=== PATIENT | female | born 1990 | race Caucasian/White ===

== ENCOUNTER 2023-05-16 09:08 | Outpatient (CLI) | payer OTHER, SELFPAY ==
[2023-05-16 10:02] VITALS: BP 109/73; PULSE 86; RESP 18; TEMP 36.8
[2023-05-16] MEDS: TERBUTALINE 1 MG/ML INJ 0.25 MG SUBCUT (10:28)
--- NOTE | 2023-05-16 12:28 | PM.PROC ---
Procedure Note Time Seen by Provider: : Date Seen: 05/16/23 Date of procedure: 05/16/23 Will [facility] bill your pro fee for this procedure?: Yes Pre-op diagnosis: Breech presentation at 37 3/7 weeks Post-op diagnosis: other (Vertex presentation, 37 3/7 weeks) Procedure: External cephalic version Procedure Description: A nonstress test was performed, which was reactive and reassuring. A limited OB ultrasound was performed at the bedside to determine position. Findings: Fetus in a breech presentation with head in the maternal right upper quadrant, and back along the maternal left. Informed consent was obtained for external cephalic version. Terbutaline 0.25 mg was administered to the patient subcutaneously. External cephalic version was attempted. I applied upward pressure to the breech, Elaina applied pressure to the vertex, and we attempted to gently coax the fetus in a forward roll in a clockwise direction. This attempt was successful. heart tones were noted to be normal following the external cephalic version. The patient tolerated the procedure well. monitoring for 1 hour after the procedure was continued to be reassuring. Anesthesia: none Surgeon: Irasema Hicks MD Water Service Dispatcher: Elaina Yo Condition: stable Disposition: observation
--- NOTE | 2023-05-16 12:44 | PC.OBNST ---
NST Note NST Note Start: 05/16/23 12:39 Freq: Status: Active Protocol: Document 05/16/23 11:45 ABP (Rec: 05/16/23 12:42 ABP [id number]) NST Note 2 Para (# of births) 1 EDC 06/05/23 Gestational Age In Weeks & Days 37 Weeks & 1 Days Patient Presented with Complaint(s) of Other Other Complaints ECV Reactive Yes CHICHI Bradley RN Date 05/16/23 Reactive Yes CHICHI Tatum RN OB NST charge Yes Complete NST Note via Write Note Yes The provider's electronic signature indicates the NST is reactive/appropriate for gestational age. *Note to provider: If an addendum is required, open the patient's chart and click on the note under the Nurse/Allied Health tab.
== END 2023-05-16 11:45 | disposition home or self-care (01) ==
LOC: OB CLI 09:09 → OB 09:15
PROVIDERS: PCP Family Medicine; Visit Provider Obstetrics & Gynecology
DX: O47.1 False labor at or after 37 completed weeks of gestation (principal); Z3A.37 37 weeks gestation of pregnancy
CPT/HCPCS: 36415; 59025; 59412; 85461; 99211; J2791; J3105

== ENCOUNTER 2023-06-08 18:06 | Inpatient (IN) | payer OTHER, SELFPAY ==
[2023-06-08 18:10] VITALS: BP 122/79; PULSE 93; PULSE 97; PULSE 99; TEMP 37.2; O2SAT 81; O2SAT 98
[2023-06-08 18:24] VITALS: BMI 28.0
--- NOTE | 2023-06-08 19:41 | PM.OBHPLI ---
OB - H&P: HPI Labor/Induction History of Present Illness Time Seen by Provider: 19:42 Date Seen: 06/08/23 Chief Complaint: The patient is a 32 year old 2 para 1 at 40+3 weeks gestation by 8 wk US, who presents for elective IOL. Chief complaint: Maternity : 2 Para: 1 Narrative: Natalee Lowe is a 32 year old female 2 para 1 at 40+3 weeks gestation by 8 wk US, who presents for elective IOL. Overall feeling well. Some contractions over the past few days, at times painful, but always resolved with rest and fluids. Wet discharge, but no LOF. Normal movement. History of Present Dating criteria: based on 1st trimester US only care: good care Ultrasounds: normal 1st trimester US and normal mid trimester US Narrative: - Blood type O neg, antibody screen negative. Received rhogam at 28 weeks. - Successful ECV at 37 weeks for breech presentation. Labs Blood type: 0 (-) negative Rubella: immune RPR/VDLR: nonreactive GBS status: negative HBsAG: negative Review of Systems Status of ROS: Reports: 10 or more systems reviewed and unremarkable except as noted in History and below Meds Home Medications and Allergies Home Medications Medication Instructions Recorded Confirmed Type vitamin with calcium 1 tab PO DAILY 03/20/23 06/08/23 History no.72-iron 27 mg-folic acid 1 mg tablet (M- Plus) famotidine 20 mg tablet (Pepcid) 20 mg PO QDAY 05/11/23 06/08/23 History Allergies Allergy/AdvReac Type Severity Reaction Status Date / Time penicillin G AdvReac Mild Verified 05/16/23 09:25 OB - H&P: Exam Physical Exam: Vital signs: Temp Pulse BP Pulse Ox 98.9 F 97 122/79 98 06/08/23 18:10 06/08/23 18:10 06/08/23 18:10 06/08/23 18:10 Narrative: General appearance: Well-appearing adult female. Alert, oriented and appropriate. Sitting up in hospital bed. HEENT: EOMI, no conjunctival injection or discharge. MMM. Neck: Supple. CV: RRR, no rubs, murmurs or extra heart sounds. Pulm: CTAB, no wheezes, rales or rhonchi. Abdomen: Soft, non-tender. Gravid. MSK: Moving all extremities. Ext: Warm and well-perfused. No LE edema. Skin: No rashes appreciated over exposed skin. Neuro: Grossly normal strength and sensation. No focal deficits. Psych: Normal affect. Detailed Labor and Delivery Exam: Patient Gravid: Yes Dilation (cm): 3 Effacement (%): 50 Cervix position: mid Consistency: medium Cervical ripeness score: 6 Fetus (Single): Station: -2 Amniotic Membrane Status: intact Heart Rate Baseline: 125 Monitor Accelerations: Present Monitor Decelerations: None Shell Assembler Variability: Moderate (6-25) OB - Problem Based A/P Additional Plan (1) Term : Status: Acute (2) Rh negative status during : Status: Acute Plan - Oral cytotec per protocol for cervical ripening - Epidural upon request - GBS negative - Reactive NST upon admission - Anticipate vaginal delivery
[2023-06-08 19:54] VITALS: BP 132/87; PULSE 105; RESP 14; TEMP 37.1
[2023-06-08] MEDS: miSOPROStoL 25 MCG/0.25 TABLET PO (20:03)
[2023-06-08 22:58] VITALS: BP 123/84; PULSE 80; RESP 16; TEMP 36.7
[2023-06-09] VITALS (104 sets, daily range): BP systolic 80–182; BP diastolic 40–131; PULSE 59–155; RESP 14–18; TEMP 36.5–37.3; O2SAT 98–100
[2023-06-09] MEDS: LACTATED RINGERS 1000 ML 1,000 ML 124 ML IV ×3 (03:29→07:45)
[2023-06-09] MEDS: OXYTOCIN 30 unit/500 ML in NS 30 UNIT/500 ML BAG IVPB (03:32)
[2023-06-09] MEDS: ROPIVACAINE 0.2% 100 ml 100 ML 12 MG EPIDURAL (04:27)
[2023-06-09] MEDS: PHENYLEPHRINE 100 MCG/ML SYRINGE IVP ×5 (04:30→05:09)
--- NOTE | 2023-06-09 04:37 | P.ANBPRC_ITS ---
[facility] Medical History Acne ?L70.9 - Acne, unspecified (ICD-10) Social History What is your current living situation?: I presently have a place to live Problems where you live: no known problems In the past 12 months, utilities in danger of being shut off: no In the past 12 mos, have been you worried that your food would run out before you had money to buy more?: never true In the past 12 mos, the food you bought just didn't last and you didn't have money to buy more?: never true Smoking Status: Never smoker How often does anyone, including family, friends and others, physically hurt you : never How often does anyone, including family, friends and others, insult or talk down to you: never How often does anyone, including family, friends and others, threaten you with harm: never How often does anyone, including family, friends and others, scream or curse at you: never Meds Home Medications and Allergies Home Medications Medication Instructions Recorded Confirmed Type vitamin with calcium 1 tab PO DAILY 03/20/23 06/08/23 History no.72-iron 27 mg-folic acid 1 mg tablet (M- Plus) famotidine 20 mg tablet (Pepcid) 20 mg PO QDAY 05/11/23 06/08/23 History Allergies Allergy/AdvReac Type Severity Reaction Status Date / Time penicillin G AdvReac Mild Verified 05/16/23 09:25 Results Vital Signs Vital Signs: Last Vital Signs Temp 98.1 F 06/09/23 02:15 Pulse 105 H 06/09/23 04:36 Resp 16 06/09/23 02:15 BP 124/72 06/09/23 04:36 Pulse Ox 100 06/09/23 04:34 Weight: 69.4 kg Height: 157.48 cm Anesthesia Procedures Epidural Insertion Patient Location: OB Start Time: :30 Stop Time: 04:30 Start Date: 06/09/23 Stop Date: 06/09/23 Reason for Block: procedure for pain Patient Position: sitting Performed By: Iris Busch Preanesthetic Checklist: IV checked, risks and benefits discussed, monitors and equipment checked, timeout performed and anesthesia consent Prep: chlorhexidine gluconate Monitoring: blood pressure monitoring, continuous pulse oximetry and heart rate Approach: midline Vertebral Space: lumbar (1-5) Epidural Technique: BREANNA saline Needle Type: Tuohy needle Injection Technique: continuous catheter Needle gauge: 17 Needle Length (cm): 10 cm Needle Insertion Depth (cm): 6 Catheter Gauge: 19 Catheter Type: multi-orifice Catheter at skin depth (cm): 12 Test Dose Result: negative and lidocaine 1.5% with epinephrine 1 to 200,000
--- NOTE | 2023-06-09 05:00 | P.OBPN_ITS ---
Subjective Time Seen by Provider: 05:00 Date Seen: 06/09/23 Narrative: I was called in to evaluate the patient d/t concern that delivery was imminent. Began to feel intense pressure and pain with contractions, requested epidural. No cervical check since ~0000. Upon my arrival, patient was more comfortable with epidural. Feeling nauseous, hypotension treated with phenylephrine x 2. Cervix found to be 5/90/-2 with bulging bag. AROM for clear fluid. Objective Vital Signs: Last Vital Signs Temp 97.7 F 06/09/23 04:50 Pulse 130 H 06/09/23 04:55 Resp 18 06/09/23 04:50 BP 97/62 06/09/23 04:55 Pulse Ox 100 06/09/23 04:59 Pelvic Exam Dilation (cm): 5 Effacement (%): 90 Station: -2 Contractions Monitor mode: External Contraction Frequency: Q2-4 Contraction pattern: Regular Pitocin Rate (mU/min): 1 Assessment Station: -2 Amniotic Membrane Status: AROM Status: Category ll Heart Rate Baseline: 140 Soil Biology Teacher Variability: Moderate (6-25) Monitor Accelerations: Absent Monitor Decelerations: Periodic Tracing Comments: Decreased variability and several decelerations with good recovery following epidural in context of maternal hypotension. Plan Plan: - Active labor, s/p AROM for clear fluid - Comfortable with epidural. Continue to monitor BP and treat PRN - tracing category II after epidural, continue to monitor - Anticipate vaginal delivery
[2023-06-09] MEDS: ePHEDrine sulfate 5 MG/ML inj 10 MG IVP (05:17)
[2023-06-09 08:42] LABS: Basophils Percent Auto 0.1 % (0.0-3.0); Hematocrit 38.3 % (33.0-51.0); Immature Granulocytes Pct Auto 0.3 %; Lymphocytes Percent Auto 5.9 % (20-44); Mean Corpuscular HGB Conc 34 gm/dL (32-36); Mean Corpuscular Hemoglobin 31 pg (26-34); Mean Corpuscular Volume 90 fL (80-100); Monocytes Percent Auto 3.4 % (0.0-11.0); Neutrophils Percent Auto 90.3 % (42.0-72.0); Platelet Count* 230 K/uL (140-440); Red Blood Count 4.24 m/uL (4.00-5.20); White Blood Count* 15.33 K/uL (4.50-11.00)
[2023-06-09 08:47] LABS: Slide Review Reflex No
[2023-06-09] MEDS: lidocaine HCL 2 % JELLY (TOP) STERILE 6 ML TOPICAL (11:30)
--- NOTE | 2023-06-09 12:13 | W.PM.OBVAGDE ---
OB Procedure Vag Delivery Mother Details Mother Details: The patient is a 32 year-old, 2, Para 1, admitted on 06/08/23 at Days gestation. : 22 Para: 1 Weeks Gestation: 40.4 Admission Date: 06/08/23 Additional Details Amniotic Membrane Status: AROM Amniotic Membrane Rupture Date: 06/09/23 Amniotic Membrane Rupture Time: 04:42 Amniotic Membrane Fluid Description: Clear Analgesia/Anesthesia Type: Epidural Waterbirth: No Pitcoin: Yes Intrapartal Events: Labor Augmentation Induction Method: per misoprostol protocol Delivery augmentation: rupture of membranes and pitocin Labor Onset: 00:30 Complete: 09:53 Pushin:30 Heart: heart tones during second stage were category 2. Decelerations with pushing, recovered with positional changes. Delivery Details Delivery Date: 06/09/23 Delivery Time: 11:26 Route of delivery: Infant Gender: Male Viability: Alive; Heart Rate Present Position at Delivery: OA Delivery Details: Delivered over intact perineum via spontaneous vaginal delivery. was placed on maternal abdomen.? Cord was clamped and cut and was transitioned to warmer for resuscitation. Required about 15 minutes of CPAP and delee suctioning with return of thick, mucousy fluid. APGARS 6 and 8. Support was weaned, infant oxygenating well on room air. Now resting comfortably with mom. 1 Minute Interval Total Score: 6 5 Minute Interval Total Score: 8 Additional Details Shoulder Dystocia: No Placenta Delivery Time: 11:29 Placental Delivery Description: Spontaneous Procedure Done: Global Blood Loss: 10 Laceration: Periurethral - 1st Degree (left, hemostatic) Episiotomy Description: None Blood Loss Measurement Type: QBL Bakri Used: No Sponge/Need Count Correct: Yes Cord Vessel Description: 3 Vessels Event Summary Status: Mother and infant were stable after delivery.
[2023-06-10 04:00] VITALS: BP 99/64; PULSE 81; RESP 16; TEMP 36.6; O2SAT 97
[2023-06-10 06:49] LABS: Hemoglobin* 12.4 gm/dL (12.0-16.0)
[2023-06-10] MEDS: DOCUSATE SODIUM 100 MG CAPSULE PO (08:52)
[2023-06-10 08:54] VITALS: BP 105/69; PULSE 83; RESP 16; TEMP 36.5; O2SAT 96
--- NOTE | 2023-06-10 11:33 | P.DS_ITS ---
DS: Providers Provider Time Seen by Provider: 11:00 Date Seen: 06/10/23 Date of admission: 06/08/23 18:06 Primary care physician: Lea Coon DO Admitting Clinician: Griselda Sykes MD Attending Physician on discharge: Griselda Sykes MD Date of Discharge: 06/10/23 DS: Diagnosis Discharge Diagnosis (1) Term : Status: Acute Problem details: Doing well (2) Rh negative status during : Status: Acute Problem details: received rhogam prior discharge Exam Const: Vital Signs, click to edit/add: Vital Signs - 24 hr 06/09/23 11:43 06/09/23 12:07 06/09/23 12:13 Temperature Pulse Rate 88 82 Pulse Rate [Pulse Oximeter] Respiratory Rate Blood Pressure 119/62 122/73 118/65 Blood Pressure [Le ft Arm] Pulse Oximetry Oxygen Delivery Me thod 06/09/23 12:27 06/09/23 12:42 06/09/23 12:58 Temperature Pulse Rate 88 89 81 Pulse Rate [Pulse Oximeter] Respiratory Rate Blood Pressure 122/69 119/70 111/66 Blood Pressure [Le ft Arm] Pulse Oximetry Oxygen Delivery Me thod 06/09/23 13:12 06/09/23 13:27 06/09/23 13:42 Temperature Pulse Rate 83 80 85 Pulse Rate [Pulse Oximeter] Respiratory Rate Blood Pressure 118/63 115/64 119/66 Blood Pressure [Le ft Arm] Pulse Oximetry Oxygen Delivery Me thod 06/09/23 15:24 06/09/23 20:00 06/09/23 23:31 Temperature 98 F 97.7 F Pulse Rate Pulse Rate [Pulse Oximeter] 81 67 60 Respiratory Rate 16 14 14 Blood Pressure Blood Pressure [Le ft Arm] 106/68 107/72 103/73 Pulse Oximetry 98 98 98 Oxygen Delivery Me thod Room Air Room Air Room Air 06/10/23 04:00 06/10/23 08:54 Temperature 97.9 F 97.7 F Pulse Rate Pulse Rate [Pulse Oximeter] 81 83 Respiratory Rate 16 16 Blood Pressure Blood Pressure [Le ft Arm] 99/64 105/69 Pulse Oximetry 97 96 Oxygen Delivery Me thod Room Air Room Air Documenting provider has reviewed patient's vital signs: yes Common normals: no apparent distress, oriented x3, healthy appearing, alert and well nourished General appearance: cooperative and comfortable : Uterus: U/1 and firm Neuro: Common normals: oriented x3 Sensorium/orientation: alert OB - DS: Summary Hospital Course Hospital Course: The patient is a 32 year old G 2 P 1 at 40 4/7 weeks gestation that was admitted to the Center on 06/08/23 for induction. She had an uncomplicated vaginal delivery. She delivered a viable male . She is breast feeding. the patient has done well. Lochia mild. Voiding, ambulating, tolerating orals. Patient would like to go home today if possible. Has 8year old at home. Peripartum Data Infant delivery method: Vaginal complications: none [place] Infant Gender: Male Discharge Plan: Home Status at Discharge Functional status at discharge: independent ambulation Time Spent with Patient Time attestation: Total time spent providing and/or coordinating discharge services: Time spent: Less than 30 minutes Discharge Plan Discharge Disposition: Home, Self-Care Date of Admission: 06/08/23 18:06 Primary Care Provider: Lea Coon Condition: Stable Anticipated Discharge Date/Time: 06/10/23 12:00 Discharge Medications: New acetaminophen 500 mg Tablet 1,000 mg PO Q6H PRNQty: 60 0RF docusate sodium 100 mg Capsule 100 mg PO DAILY Qty: 30 0RF ibuprofen 600 mg Tablet 600 mg PO Q6H PRNQty: 30 0RF cholecalciferol (vitamin D3) [Vitamin D3] 125 mcg (5,000 unit) tablet 125 mcg PO DAILY Qty: 90 3RF Continued M- Plus 27 mg iron- 1 mg tablet 1 tab PO DAILY Discontinued famotidine [Pepcid] 20 mg tablet 20 mg PO QDAY Discharge Orders: Discharge Order (Routine); Ordered 06/10/23 Ordered By: Linda Dick Patient Education: OB Vaginal/Breast Feeding Activity Detail: pelvic rest x 6 weeks (no intercourse, no tampons) Discharge Diet: Regular Follow Up Appointments: Lea Coon DO [Primary Care Provider] - Forms: MyHealth Info Instructions Discharge Comments: Make [address] Sykes
[2023-06-10 12:41] VITALS: BP 113/78; PULSE 87; RESP 16; TEMP 36.7; O2SAT 98
== END 2023-06-10 13:20 | disposition home or self-care (01) | DRG 807 ==
PROVIDERS: Admitting Provider Family Medicine; PCP Family Medicine; Visit Provider Family Medicine
DX: O48.0 Post-term pregnancy (principal); Z37.0 Single live birth; O70.0 First degree perineal laceration during delivery; O26.893 Other specified pregnancy related conditions, third trimester; Z67.41 Type O blood, Rh negative; I95.9 Hypotension, unspecified; O76 Abnormality in fetal heart rate and rhythm complicating labor and delivery; Z3A.40 40 weeks gestation of pregnancy
CPT/HCPCS: 01967; 36415; 59200; 85018; 85025; 85461; 86850; 86870; 86880; 86900; 86901; A9270; J2371; J2791; J2795; J7120; S0020